=== PATIENT | male | born 1995 | race Caucasian/White ===

== ENCOUNTER 2019-04-20 13:26 | Emergency (ER) | payer BC ==
[~2019-04-20] VITALS: Ht 175.3 cm; Wt 90.9 kg
[2019-04-20 13:31] VITALS: BP 119/56; TEMP 98.1
[2019-04-20 15:09] VITALS: PULSE 69
== END 2019-04-20 15:13 | disposition home or self-care (01) ==
LOC: COL.ER 13:26
DX: J36 Peritonsillar abscess (principal)

== ENCOUNTER → 2020-07-14 | Outpatient (CLI) | payer BC | LOC: COL.RAD 09:19 | DX: M16.12 Unilateral primary osteoarthritis, left hip (principal) | CPT/HCPCS: A9585; Q9967 ==